=== PATIENT | male | born 1985 | race Caucasian/White ===

== ENCOUNTER 2017-12-26 21:45 | Inpatient (IN) ==
[2017-12-26] MEDS ORDERED: ceFAZolin 2 GM Premix Inj 2 GM/50 ML PIGGYBACK IV.SIG ONE (21:55)
[2017-12-26] MEDS ORDERED: Diphtheria/Tetanus/Pertussis Vaccine Inj 0.5 ML Syringe IM ONE (21:55)
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
[2017-12-26] MEDS ORDERED: Lidocaine PF 2% Inj 10 ML Ampul ONE (22:40)
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
[2017-12-26] MEDS ORDERED: oxyCODONE/Acetaminophen 10/325 Tablet PO ONE (22:46)
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
[2017-12-26] MEDS ORDERED: Morphine Inj 4 MG/ML Vial IV.PUSH ONE (23:25)
[2017-12-27 00:25] LABS: Baso % (Auto) 0.3 % (0.0-2.0); Eos # (Auto) 0.1 th/mm3 (0.0-0.4); Eos % (Auto) 0.5 % (0.0-4.0); Hematocrit 40.8 % (39.0-51.0); Hemoglobin 13.9 gm/dL (13.0-17.0); Lymph # (Auto) 2.3 th/mm3 (1.0-4.8); Lymph % (Auto) 16.7 % (9.0-44.0); Mean Corpuscular HGB Conc 34.1 % (32.0-36.0); Mean Corpuscular Hemoglobin 31.6 pg (27.0-34.0); Mean Corpuscular Volume 92.7 fL (80.0-100.0); Mean Platelet Volume 9.3 fL (7.0-11.0); Mono # (Auto) 0.9 th/mm3 (0.0-0.9); Mono % (Auto) 6.4 % (0.0-8.0); Neut # (Auto) 10.3 th/mm3 (1.8-7.7); Neut % (Auto) 76.1 % (16.0-70.0); Platelet Count 215 th/mm3 (150-450); Red Cell Distribution Width 13.6 % (11.6-17.2); White Blood Count 13.5 th/mm3 (4.0-11.0)
[2017-12-27 00:37] LABS: Alanine Aminotransferase 43 U/L (12-78); Albumin 3.8 g/dL (3.4-5.0); Anion Gap 10 meq/L (5-15); Aspartate Aminotransferase 56 U/L (15-37); Blood Urea Nitrogen 14 mg/dL (7-18); Calcium 8.1 mg/dL (8.5-10.1); Chloride 110 meq/L (98-107); Glomerular Filtration Rate 73 mL/min (>89); Glucose,Random 94 mg/dL (74-106); Potassium 3.9 meq/L (3.5-5.1); Sodium 144 meq/L (136-145)
[2017-12-27 00:40] LABS: Alkaline Phosphatase 76 U/L (45-117); Total Protein 7.2 g/dL (6.4-8.2)
[2017-12-27 00:54] LABS: Prothrombin Time 10.3 sec (9.8-11.6)
[2017-12-27] MEDS ORDERED: HYDROmorphone PF Inj 2 MG/ML Vial IV.PUSH ONE (01:01)
--- NOTE | 2017-12-27 01:39 | XR ---
EXAM DATE: 12/26/2017 11:54 PM EDT AGE/SEX: 32 years / Male INDICATIONS: Chest pain. Follow up pneumothorax. CLINICAL DATA: This is the patient's subsequent encounter. Patient reports that signs and symptoms h ave been present for 1 day and indicates a pain score of 8/10. MEDICAL/SURGICAL HISTORY: None. None. COMPARISON: No prior exams available for comparison. FINDINGS: A single AP view of the chest demonstrates the lungs to be symmetrically aerated with a 1 cm, white a pical pneumothorax. Lungs are otherwise clear. Heart size is normal. Osseous structures are intact. S oft tissue defect with air in the lower right chest. CONCLUSION: 1. Very small, 1.1 cm right apical pneumothorax. Lungs are otherwise clear. 2. Soft tissue defect/wound with regional air in the right lower lateral chest Electronically signed by: Shashank Miguel MD 12/27/2017 1:38 AM EDT
[2017-12-27] MEDS ORDERED: Morphine Inj 4 MG/ML Vial IV.PUSH PRN (02:12)
[2017-12-27] MEDS ORDERED: Sod Chloride 0.9% Inj 1,000 ML IV.CONT SCH (02:15)
[2017-12-27] MEDS ORDERED: Pantoprazole Inj 40 MG Vial IV.PUSH SCH (03:00)
[2017-12-27] MEDS ORDERED: Chlorhexidine Gluconate 2% 1 Pack (2 Cloths) TOPICAL SCH (04:00)
[2017-12-27] MEDS ORDERED: Chlorhexidine Gluconate 2% 1 Pack (2 Cloths) TOPICAL PRN (04:00)
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
[2017-12-27] MEDS ORDERED: Docusate Sodium 100 MG Capsule PO SCH (09:00)
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
== END 2017-12-27 05:05 | disposition left against medical advice (07) ==
LOC: NEPC 21:45 → NEDA 23:38 → N03 12-27 01:30
PROVIDERS: ADMIT Surgery; ATTEND Surgery

== ENCOUNTER 2017-12-27 16:30 | Inpatient (IN) ==
[2017-12-27] MEDS ORDERED: Sod Chloride 0.9% Inj 1,000 ML IV.SIG ONE (19:13)
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
[2017-12-27] MEDS ORDERED: Morphine Inj 4 MG/ML Vial IV.PUSH ONE ×2 (19:50→21:15)
[2017-12-27 20:06] LABS: Baso % (Auto) 0.4 % (0.0-2.0); Eos # (Auto) 0.1 th/mm3 (0.0-0.4); Eos % (Auto) 0.6 % (0.0-4.0); Hematocrit 41.2 % (39.0-51.0); Hemoglobin 14.3 gm/dL (13.0-17.0); Lymph # (Auto) 1.9 th/mm3 (1.0-4.8); Lymph % (Auto) 17.4 % (9.0-44.0); Mean Corpuscular HGB Conc 34.6 % (32.0-36.0); Mean Corpuscular Hemoglobin 31.8 pg (27.0-34.0); Mean Corpuscular Volume 91.9 fL (80.0-100.0); Mean Platelet Volume 9.1 fL (7.0-11.0); Mono % (Auto) 9.1 % (0.0-8.0); Neut # (Auto) 7.7 th/mm3 (1.8-7.7); Neut % (Auto) 72.5 % (16.0-70.0); Platelet Count 184 th/mm3 (150-450); Red Blood Count 4.48 mil/mm3 (4.50-5.90); Red Cell Distribution Width 13.4 % (11.6-17.2); White Blood Count 10.7 th/mm3 (4.0-11.0)
[2017-12-27 20:25] LABS: Albumin 3.7 g/dL (3.4-5.0); Anion Gap 7 meq/L (5-15); Aspartate Aminotransferase 44 U/L (15-37); Blood Urea Nitrogen 20 mg/dL (7-18); Calcium 8.6 mg/dL (8.5-10.1); Chloride 105 meq/L (98-107); Glomerular Filtration Rate 86 mL/min (>89); Glucose,Random 99 mg/dL (74-106); Lipase 101 U/L (73-393); Magnesium 2.3 mg/dL (1.5-2.5); Potassium 3.8 meq/L (3.5-5.1); Sodium 140 meq/L (136-145)
[2017-12-27 20:26] LABS: Alanine Aminotransferase 41 U/L (12-78)
[2017-12-27 20:28] LABS: Alkaline Phosphatase 94 U/L (45-117); Total Protein 7.1 g/dL (6.4-8.2)
[2017-12-27 20:41] LABS: Prothrombin Time 9.9 sec (9.8-11.6)
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
[2017-12-27] MEDS ORDERED: Morphine Sulfate Inj 8 MG/ML Vial IV.PUSH ONE (20:46)
[2017-12-27] MEDS ORDERED: Lidocaine PF 1% Inj 30 ML Vial ONE (21:16)
--- NOTE | 2017-12-27 21:56 | XR ---
EXAM DATE: 12/27/2017 9:51 PM EDT AGE/SEX: 32 years / Male INDICATIONS: Post chest tube. Pneumothorax. CLINICAL DATA: This is the patient's subsequent encounter. Patient reports that signs and symptoms h ave been present for 1 day and indicates a pain score of Nonresponsive. MEDICAL/SURGICAL HISTORY: None. None. COMPARISON: [facility] [place], CHEST 1V SINGLE AP, 12/27/2017. . FINDINGS: There is a right-sided chest tube. The tip projects over the medial aspect of the left chest. The pat ient is rotated. The previously seen pneumothorax appears to have been successfully treated. There is subcutaneous emphysema seen. The heart and mediastinal structures are normal in size. CONCLUSION: Right chest tube with resolution of the right pneumothorax. The patient is rotated. The tip in the right chest tube projects over the medial left chest. This is likely secondary to the rotation. Right subcutaneous emphysema. Electronically signed by: Danny Ragsdale MD 12/27/2017 9:55 PM EDT
[2017-12-28] MEDS ORDERED: Morphine Inj 4 MG/ML Vial IV.PUSH PRN (00:16)
[2017-12-28] MEDS ORDERED: Acetaminophen 325 MG Tablet PO PRN (00:33)
[2017-12-28] MEDS ORDERED: Pantoprazole Inj 40 MG Vial IV.PUSH SCH (01:00)
[2017-12-28] MEDS: Morphine Inj 4 MG/ML Vial IV.PUSH PRN ×4 (03:15→20:13)
--- NOTE | 2017-12-28 06:53 | XR ---
EXAM DATE: 12/28/2017 6:45 AM EDT AGE/SEX: 32 years / Male INDICATIONS: Right hand pain. CLINICAL DATA: This is the patient's subsequent encounter. Patient reports that signs and symptoms h ave been present for 2 days and indicates a pain score of 5/10. MEDICAL/SURGICAL HISTORY: None. Chest tube, right. COMPARISON: [facility] [place], HAND LIMITED RIGHT 2V, 12/26/2017. . FINDINGS: Again noted is the oblique fracture through the proximal aspect of the fourth metacarpal with approxi mately one cortical thickness also displacement of the distal fragment. Splint material now overlies the hand and there is no significant interval bony bridging of the fracture fragments CONCLUSION: Stable appearance of the oblique fracture through the proximal fourth metacarpal with no interval bon y bridging. Electronically signed by: Shashank Miguel MD 12/28/2017 6:52 AM EDT
[2017-12-28] MEDS: Famotidine 20 MG Tablet PO SCH ×2 (08:04→20:12)
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
[2017-12-28] MEDS ORDERED: Ibuprofen 400 MG Tablet PO ONE (09:45)
--- NOTE | 2017-12-28 10:52 | ECG ---
Date Performed: 12/27/2017 Time Performed: 19:22:49 PTAGE: 32 years EKG: Sinus rhythm NORMAL ECG NO PREVIOUS TRACING DOCTOR: Steve Romo Interpretating Date/Time 12/28/2017 10:51:39
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
[2017-12-29] MEDS: Morphine Inj 4 MG/ML Vial IV.PUSH PRN ×3 (02:40→22:29)
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
[2017-12-29 07:25] LABS: Baso % (Auto) 0.4 % (0.0-2.0); Eos # (Auto) 0.2 th/mm3 (0.0-0.4); Eos % (Auto) 2.7 % (0.0-4.0); Hematocrit 40.3 % (39.0-51.0); Hemoglobin 13.5 gm/dL (13.0-17.0); Lymph # (Auto) 1.9 th/mm3 (1.0-4.8); Lymph % (Auto) 30.4 % (9.0-44.0); Mean Corpuscular HGB Conc 33.4 % (32.0-36.0); Mean Corpuscular Hemoglobin 31.7 pg (27.0-34.0); Mean Corpuscular Volume 94.9 fL (80.0-100.0); Mean Platelet Volume 9.1 fL (7.0-11.0); Mono # (Auto) 0.4 th/mm3 (0.0-0.9); Mono % (Auto) 7.2 % (0.0-8.0); Neut # (Auto) 3.7 th/mm3 (1.8-7.7); Neut % (Auto) 59.3 % (16.0-70.0); Platelet Count 181 th/mm3 (150-450); Red Blood Count 4.25 mil/mm3 (4.50-5.90); White Blood Count 6.3 th/mm3 (4.0-11.0)
[2017-12-29 07:58] LABS: Anion Gap 4 meq/L (5-15); Blood Urea Nitrogen 9 mg/dL (7-18); Calcium 8.1 mg/dL (8.5-10.1); Chloride 107 meq/L (98-107); Glomerular Filtration Rate Greater Than 89 mL/min (>89); Glucose,Random 106 mg/dL (74-106); Potassium 4.2 meq/L (3.5-5.1); Sodium 142 meq/L (136-145)
[2017-12-29] MEDS: Famotidine 20 MG Tablet PO SCH ×2 (08:52→20:46)
[2017-12-29] MEDS: Ketorolac Inj 30 MG/ML (IVP) Vial IV.PUSH SCH ×2 (13:09→18:01)
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
[2017-12-29] MEDS: Gabapentin 300 MG Capsule PO SCH (18:01)
[2017-12-29] MEDS: oxyCODONE/Acetaminophen 10/325 Tablet PO PRN (20:46)
[2017-12-30] MEDS: oxyCODONE/Acetaminophen 10/325 Tablet PO PRN ×5 (00:13→14:17)
[2017-12-30] MEDS: Morphine Inj 4 MG/ML Vial IV.PUSH PRN ×3 (02:33→10:56)
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
[2017-12-30] MEDS: Famotidine 20 MG Tablet PO SCH (08:44)
[2017-12-30] MEDS: Gabapentin 300 MG Capsule PO SCH ×2 (08:44→13:14)
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
[2017-12-30 12:32] VITALS: BP 143/75; PULSE 82; RESP 17; TEMP 97.5; O2SAT 100
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
== END 2017-12-30 14:25 | disposition home or self-care (01) ==
LOC: NEPE 16:30 → NEDA 21:48 → NEDH 12-28 04:52 → N07 12-28 12:51
PROVIDERS: ADMIT Surgery; ATTEND Surgery